=== PATIENT | female | born 1980 | race Caucasian/White ===

== ENCOUNTER 2024-08-11 14:14 | Emergency (ER) | payer OTHER, SELFPAY ==
[2024-08-11 14:17] VITALS: BP 116/72; PULSE 62; RESP 20; TEMP 34.9; O2SAT 98; BMI 24.9
--- NOTE | 2024-08-11 14:19 | CRLHL7_ITS ---
For Patients: As a result of the Century Cures Act, medical imaging exams and procedure reports are released immediately into your electronic medical record. You may view this report before your referring provider. If you have questions, please contact your health care provider. Indication: Trauma. Technique: Right wrist, 3 views. Comparison: None. Findings/Impression: Bones: Acute mildly displaced comminuted distal radius fracture with trace dorsal angulation. Associated ulnar styloid fracture. Joint spaces: Associated joint effusion. Soft tissues: Associated soft tissue swelling. Dictated by Vivek Cook MD @ 08/11/2024 4:36:34 PM (Electronically Signed)
[2024-08-11] MEDS: MORPHINE 4 MG/ML INJ IVP ×2 (14:24→15:28)
[2024-08-11 14:39] VITALS: PULSE 58; O2SAT 95
[2024-08-11 15:00] VITALS: PULSE 62; O2SAT 98
--- NOTE | 2024-08-11 15:07 | ED.UPPEXIN ---
HPI - Extremity Injury (Upper) General Date Seen: 08/11/24 Chief Complaint: Extremity Pain/Injury, Upper Stated Complaint: right arm injury Time Seen by Provider: 08/11/24 14:17 Source: patient Mode of arrival: ambulatory Limitations: no limitations History of Present Illness HPI narrative: Patient is a 43-year-old female presenting to the emergency department for right wrist pain. She has pain kick ball today when she fell and landed on her right wrist. Denies any other injuries. Denies any elbow or shoulder pain. Denies any your head. Denies numbness. States the pain is an 8/10 sharp pain. This appeared to be deformity. Denies previously injuring his wrist in the past. No other concerns noted Related Data Home Medications ?Medication ?Instructions ?Recorded ?Confirmed norethindrone-e.estradiol 1 tab PO DAILY 03/10/22 08/11/24 triphasic 0.5 mg/0.75 mg/1 mg-35 mcg tablet venlafaxine 75 mg capsule,extended 75 mg PO QDAY 03/10/22 12/14/22 release 24 hr Previous Rx's ?Medication ?Instructions ?Recorded fluticasone propionate 50 2 spray intranasal QDAY 30 days 03/30/22 mcg/actuation nasal #16 grams spray,suspension sulfacetamide sodium (acne) 10 % 1 applic topical DAILY #118 mL 09/01/22 lotion (suspension) (Klaron) triamcinolone acetonide 0.1 % 1 applic topical BID #80 grams 09/01/22 topical cream Allergies Allergy/AdvReac Type Severity Reaction Status Date / Time No Known Allergies Allergy Verified 08/11/24 14:35 Review of Systems Narrative: Pertinent systems reviewed and were negative unless stated in HPI PFSH PFSH Medical History (Updated 08/11/24 @ 16:58 by Dominic Chatterjee DO) Rosacea ?L71.9 - Rosacea, unspecified (ICD-10) Surgical History (Updated 12/12/22 @ 15:46 by Rosa Iverson ~ 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 Moist mucous membranes. CV: Radial pulses +2 bilaterally MSK: Tenderness and swelling noted to right wrist with apparent deformity. No tenderness noted to right shoulder or elbow. No tenderness noted to right hand Skin: Warm, Dry. No rashes or lesions. Neuro: Normal Muscle tone, No focal neurological deficits. Psych: Awake, Alert, & Oriented x3. Appropriate mood and affect. Const: Vital Signs, click to edit/add: Vital Signs - 24 hr 08/11/24 14:17 08/11/24 14:39 08/11/24 15:00 Temperature 94.9 F L Pulse Rate 58 L 62 Pulse Rate [Right Pulse Oximeter] 62 Respiratory Rate 20 Blood Pressure [Le ft Upper Arm] 116/72 Pulse Oximetry 98 95 98 Oxygen Delivery Me thod Room Air 08/11/24 15:30 08/11/24 16:21 Temperature 98.2 F Pulse Rate 62 Pulse Rate [Right Pulse Oximeter] 80 Respiratory Rate 18 Blood Pressure [Le ft Upper Arm] 153/84 H Pulse Oximetry 99 99 Oxygen Delivery Me thod Room Air Course Vital Signs Vital signs: Initial Vital Signs Temperature 94.9 F L 08/11/24 14:17 Temperature Source Temporal Artery Scan 08/11/24 14:17 Pulse Rate 62 08/11/24 14:17 Respiratory Rate 20 08/11/24 14:17 Blood Pressure 116/72 08/11/24 14:17 Blood Pressure Mean 86 08/11/24 14:17 Blood Pressure Position Supine 08/11/24 14:17 Pulse Oximetry 98 08/11/24 14:17 Oxygen Delivery Method Room Air 08/11/24 14:17 Vital Signs Temperature 94.9 F L 08/11/24 14:17 Pulse Rate 62 08/11/24 14:17 Respiratory Rate 20 08/11/24 14:17 Blood Pressure 116/72 08/11/24 14:17 Pulse Oximetry 98 08/11/24 14:17 Oxygen Delivery Method Room Air 08/11/24 14:17 Temperature 98.2 F 08/11/24 16:21 Pulse Rate 80 08/11/24 16:21 Respiratory Rate 18 08/11/24 16:21 Blood Pressure 153/84 H 08/11/24 16:21 Pulse Oximetry 99 08/11/24 16:21 Oxygen Delivery Method Room Air 08/11/24 16:21 Medications Administered Medications: Discontinued Medications Generic Name Dose Route Start Last Admin Trade Name Landonq PRN Reason Stop Dose Admin Morphine Sulfate 4 mg 08/11/24 14:19 08/11/24 14:24 Morphine 4 Mg/Ml Inj IVP 08/11/24 14:20 4 mg ONCE ONE Administration Morphine Sulfate 4 mg 08/11/24 15:04 08/11/24 15:28 Morphine 4 Mg/Ml Inj IVP 08/11/24 15:05 4 mg ONCE ONE Administration MDM - Extremity Injury (Upper) MDM Narrative Medical decision making narrative: Patient is a 43 a female presenting for right wrist pain. There is apparent right wrist fracture. Will order an x-ray for better evaluation. She is neurovascular intact. No hand or other joint pain at this time. No further imaging necessary. Morphine given for pain in her she states her pain is now tolerable. X-ray reviewed by myself and the radiologist shows an acute mildly displaced comminuted distal radial fracture with trace dorsal angulation. Also associated ulnar styloid fracture. This does not require reduction at this time. Will have a follow-up with Orthopedics. Stent was placed. Oxycodone given for pain. She is agreeable to this plan. Will be discharged patient started to be nauseous before discharging Zofran was given. Imaging Data Right wrist x-ray: Attestation: I have reviewed the pertinent imaging results. Radiologist's impression: Bones: Acute mildly displaced comminuted distal radius fracture with trace dorsal angulation. Associated ulnar styloid fracture. Joint spaces: Associated joint effusion. Soft tissues: Associated soft tissue swelling. Dictated by Vivek Cook MD @ 08/11/2024 4:36:34 PM Discharge Plan Discharge Clinical Impression: Fracture of wrist Qualifiers: Encounter type: initial encounter Fracture type: closed Laterality: right Qualified Code(s): S62.101A - Fracture of unspecified carpal bone, right wrist, initial encounter for closed fracture Patient Disposition: Home, Self-Care Condition: Improved Instructions: Wrist Fracture in Adults (ED) Additional Instructions: Take Tylenol and ibuprofen for pain and if that is not helping use the oxycodone. Use Zofran as needed for nausea. Follow-up with [facility]. 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 Return for new or worsening symptoms Prescriptions: No Action norethin-e.estradiol triphasic 0.5/0.75/1 mg- 35 mcg tablet 1 tab PO DAILY venlafaxine 75 mg capsule,extended release 24hr 75 mg PO QDAY sulfacetamide sodium (acne) [Klaron] 10 % suspension 1 applic topical DAILY Qty: 118 1RF triamcinolone acetonide 0.1 % cream 1 applic topical BID Qty: 80 1RF fluticasone propionate 50 mcg/actuation spray,suspension 2 spray intranasal QDAY 30 Days Qty: 16 11RF Rx Instructions: administer into each nostril Follow Up/Referrals: Sunita Trejo MD [Primary Care Provider] - Stand Alone Forms: [facility] Info Instructions Procedures Orthopedic Splinting/Casting Right wrist: Side: right Upper Extremity Injury Location: wrist Upper extremity immobilizer: volar splint Applied by clinician: /DO Conclusion: patient tolerated procedure
[2024-08-11 15:30] VITALS: PULSE 62; O2SAT 99
[2024-08-11 16:21] VITALS: BP 153/84; PULSE 80; RESP 18; TEMP 36.8; O2SAT 99
[2024-08-11] MEDS: ONDANSETRON 2 MG/ML inj 4 MG IVP (17:17)
== END 2024-08-11 18:02 | disposition home or self-care (01) ==
PROVIDERS: Emergency Provider Student in an Organized Health Care Education/Training Program; PCP Family Medicine
DX: S62.101A Fracture of unspecified carpal bone, right wrist, initial encounter for closed fracture (principal); W01.0XXA Fall on same level from slipping, tripping and stumbling without subsequent striking against object, initial encounter; Y93.6A Activity, physical games generally associated with school recess, summer camp and children
CPT/HCPCS: 73110; 99284; J2270; J2405

== ENCOUNTER 2024-08-15 08:33 | Day surgery (SDC) | payer OTHER, SELFPAY ==
[2024-08-15] VITALS (11 sets, daily range): BP systolic 100–162; BP diastolic 60–97; PULSE 62–103; RESP 14–18; TEMP 36.6–37.4; O2SAT 93–100; BMI 24.0
[2024-08-15] MEDS: ACETAMINOPHEN 500 MG TABLET 1000 MG PO (08:45)
[2024-08-15] MEDS: OXYCODONE (CR) 10 MG TAB.ER.12H PO (08:45)
[2024-08-15] MEDS: CELECOXIB 200 MG CAPSULE PO (08:45)
[2024-08-15] MEDS: SODIUM CHLORIDE 0.9 % (FLUSH) 10 ML SYRINGE IVF (08:50)
[2024-08-15 08:53] LABS: Ur HCG Qualitative* Negative (Negative)
[2024-08-15] MEDS: 0.9 % SODIUM CHLORIDE 500 ML 500 ML 100 ML IV (09:00)
[2024-08-15] MEDS: MIDAZOLAM HCL 1 MG/ML inj IVP (10:10)
[2024-08-15] MEDS: fentaNYL 100 MCG/2 ML inj IVP (10:10)
--- NOTE | 2024-08-15 10:23 | SUR.PREOP ---
TIME?OUT:?1010 PT/violeta jones RN/magdalena dacosta CRNA/ aimee soliman CRNA?VERIFICATION?OF?SURGICAL?SITE,?PROCEDURE,?AND?CONSENT OBTAINED?PRIOR?TO?INVASIVE?PROCEDURE.
--- NOTE | 2024-08-15 10:26 | W.PM.NB ---
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 Images saved: Yes Medications given in 5ml increments after negative aspiration: Ropivicaine %: 0.5 mL: 15 Needle gauge: 20 and Lidocaine %: 2 mL: 5 Decadron (mg): 10 Precedex (mcg): 25 Patient tolerated procedure well: Yes Additional comments: Injected in 5mL increments after negative aspiration Block Charges Block Charge (with Pro Fee): Axillary Nerve Use of Ultrasound Machine for Block: Yes- US Guidance/pain block
[2024-08-15] MEDS: CEFAZOLIN 2 GM INJ IVP (10:48)
--- NOTE | 2024-08-15 11:15 | CRLHL7_ITS ---
For Patients: As a result of the Cures Act, medical imaging exams and procedure reports are released immediately into your electronic medical record. You may view this report before your referring provider. If you have questions, please contact your health care provider. Indication: ORIF RIGHT WRIST Technique: Three fluoroscopic images of the right wrist. Fluoroscopic time 145.5 seconds. IMPRESSION: Fluoroscopic guidance for open reduction internal fixation distal radial fracture. Dictated by Zak Lomeli MD @ 08/16/2024 9:34:30 AM (Electronically Signed)
--- NOTE | 2024-08-15 13:23 | W.ANESCHARGE ---
Anesthesia Charges Start Date/Time Anesthesia Start Date: 08/15/24 Anesthesia Start Time: 10:36 Stop Date/Time Anesthesia Stop Date: 08/15/24 Anesthesia Stop Time: 13:19
--- NOTE | 2024-08-15 13:38 | PM.ORPRC ---
Procedure Note Date of procedure: 08/15/24 Procedure: PREOPERATIVE DIAGNOSIS: Angulated 3+ part intra-articular right upper extremity distal radius fracture POSTOPERATIVE DIAGNOSIS: Angulated 3+ part intra-articular right upper extremity distal radius fracture NAME OF OPERATION: Open reduction internal fixation SURGEON: Jimmie Altman MD SENIOR QUANTITY SURVEYOR: ZO Kennedy ANESTHESIA: Supraclavicular block plus monitored anesthesia care ESTIMATED BLOOD LOSS: 0 mL COMPLICATIONS: None SPECIMENS: None DRAINS: None PREOPERATIVE ANTIBIOTICS: Ancef 1 g INDICATIONS: The patient is a 43-year-old who fell landing on their upper extremity sustaining the above injury. Given the amount of angulation, reduction and plate fixation were recommended. The risks, benefits and expected outcomes were discussed in detail. These included but were not limited to: Infection, bleeding, injury to blood vessel or nerve, venous thromboembolism. All questions were answered to their satisfaction. Use of an web marketing assistant was necessary throughout the case for patient positioning and safety, maintenance of the reduction, surgical site dressing and splint application. PROCEDURE: A supraclavicular block was placed by Anesthesia. The patient was placed supine on the operating room table. IV sedation was administered. The extremity was prepped and draped in the usual sterile fashion. The limb was exsanguinated with the Sadi bandage. The pneumatic tourniquet was inflated to 250 mm of mercury. A longitudinal incision was made over the flexor carpi radialis. Subcutaneous dissection was taken sharply through the FCR sheath. The FCR was retracted radially. Sharp dissection was carried through the floor of the FCR sheath. The flexor pollicis longus was retracted ulnarly. Sharp dissection was carried through the radial border of the pronator quadratus which was elevated ulnarly, exposing the fracture site. The web marketing assistant held retractors to expose the fracture. We placed a Synthes standard, 3 hole volar locking plate over the volar cortex. It was provisionally held with a BB tack x 2. Its placement was confirmed with the image intensifier. We placed a cortical screw in the slot. We placed a locking screw in the shaft. We reduced the ulnar column anatomically to the plate and held it with 2 smooth locking pegs. We then reduced the radial column to the ulnar column and to the plate. There was a significant amount of comminution of the radial column. There were several small fragments of the radial styloid. It was quite difficult to obtain fixation on the radial side. We attempted to place 2 smooth locking pegs in the radial column. However, we had a difficult time reducing the articular surface anatomically. Therefore, they were removed and the joint was entered volarly. This allowed some visualization of articular surface. We were able to hold the radial styloid reduced by hand, visualizing the articular surface. We placed a 0.062 in and a 0.045 in K-wire through the radial styloid retrograde, into the shaft. We then placed the 3 radial column smooth locking pegs. Finally, we placed the 3rd smooth locking peg in the ulnar column and placed the final locking screw in the shaft. This construct was imaged in multiple views and was felt to be well placed with an excellent reduction and well placed implants. The wound was irrigated normal saline. Subcutaneous tissues were reapproximated with a 2-0 Vicryl, skin with a running 3-0 Monocryl in a subcuticular fashion. Glue was used to seal the skin. Pins were cut off and were appropriately dressed. A dry dressing and short-arm dorsal volar splint was applied. These steps were all completed by the web marketing assistant. The tourniquet was released, sponge and needle counts were correct x2. The patient tolerated the procedure well, there were no apparent complications. They were taken to the postanesthesia care unit in satisfactory condition. PLAN: The patient will be discharged home. They will work on elevation of the hand and active range of motion of the fingers. They will follow up next week in the office for a wound check with a PA, oblique, lateral and fossa lateral view of the wrist out of the splint prior to being seen in preparation for cast immobilization.
== END 2024-08-15 15:23 | disposition home or self-care (01) ==
LOC: OR 08:34
PROVIDERS: Nurse Anesthetist, Certified Registered; PCP Family Medicine; Visit Provider Orthopaedic Surgery
PROC: (CPT 25575; principal; 2024-08-15 11:15)
DX: S52.571A Other intraarticular fracture of lower end of right radius, initial encounter for closed fracture (principal); G89.18 Other acute postprocedural pain
CPT/HCPCS: 25609; 01830; 64417; 73110; 76942; 81025; A4580; A9270; C1713; J0690; J1100; J2250; J2704; J2795; J3010; J3490; J7030

== ENCOUNTER 2025-01-03 12:33 | Outpatient (CLI) | payer OTHER, SELFPAY ==
--- NOTE | 2025-01-03 13:00 | CRLHL7_ITS ---
For Patients: As a result of the Century Cures Act, medical imaging exams and procedure reports are released immediately into your electronic medical record. You may view this report before your referring provider. If you have questions, please contact your health care provider. Indication: Chronic sinusitis. Technique: Noncontrast axial CT of the paranasal sinuses with coronal reformats are provided. Compared to prior study from May 30, 2018. Findings: Improved trace mucosal thickening within the floor of the left maxillary sinus. Evidence of interval left maxillary sinus antrostomy. The remainder of the visualized paranasal sinuses are clear. 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 The right ostiomeatal complex is patent. The visualized intraorbital contents appear within normal limits. Impression: 1. Improved trace mucosal thickening within the floor of the left maxillary sinus. 2. Interval postoperative change compatible with left maxillary antrostomy. 3. Remainder of the paranasal sinuses are clear. Please note that all CT scans at this facility use dose modulation, iterative reconstruction, and/or weight-based dosing when appropriate to reduce radiation dose to as low as reasonably achievable. Dictated by Mckinley Mendosa MD @ 01/03/2025 5:19:47 PM (Electronically Signed)
== END 2025-01-03 12:34 | disposition home or self-care (01) ==
LOC: CT 12:34
PROVIDERS: PCP Family Medicine; Visit Provider Otolaryngology
DX: J32.9 Chronic sinusitis, unspecified (principal); J32.0 Chronic maxillary sinusitis
CPT/HCPCS: 70486